=== PATIENT | female | born 1990 | race Caucasian/White ===

== ENCOUNTER 2019-02-23 04:31 | Inpatient (IN) | payer OTHER ==
[~2019-02-23 04:31] MED LIST: BUTORPHANOL 1 MG/ML INJ IV PRN; METHYLERGONOVINE 0.2MG/ML AMP IM PRN; PROMETHAZINE 25 MG/ML VIAL IM PRN; Ringers Lactate 1,000 ML IV PRN
--- OUTSIDE RECORDS SUMMARY | 2019-02-23 04:34 | XMS REPORT ---
:1990 [facility] Address [address] [place] [address] Care Team Providers Name Role Phone Unavailable Unavailable Unavailable Payers Payer Name Policy Type Policy Number Effective Date Expiration Date Problems This patient has no known problems. Allergies, Adverse Reactions, Alerts Allergy Allergy Status Severity Reaction(s) Onset Inactive Treating Comments Name Type Date Date Clinician Coconut DA Active U 2018-06 00:00:0 0 pineapple DA Active U 2018-06 00:00:0 0 latex DA Active AK 2018-06 00:00:0 0 Coconut DA Active U 2013-04 00:00:0 0 pineapple DA Active U 2013-04 00:00:0 0 latex DA Active AK 2013-04 00:00:0 0 Medications This patient has no known medications. Results Test Description Test Time Test Comments Text Results Atomic Results Result Comments BASIC METABOLIC PANEL 2018-07-06 16:32:00 Test Item Value Reference Range Comments SODIUM (test code=NA) 139 mEq/L 134-147 POTASSIUM (test code=K) 3.9 mEq/L 3.4-5.0 CHLORIDE (test code=CL) 107 mEq/L 100-108 CARBON DIOXIDE (test code=CO2) 27 mEq/L 21-33 ANION GAP (test code=GAP) 9 0-20 GLUCOSE (test code=GLU) 100 mg/dL 70-110 BLOOD UREA NITROGEN (test code=BUN) 8 mg/dL 7-18 GLOMERULAR FILTRATION RATE (test 118.2 110-120 Units of measure=ml/min/1.73 code=GFR) m2 CREATININE (test code=CREAT) 0.6 mg/dL 0.6-1.3 CALCIUM (test code=CA) 9.0 mg/dL 8.0-10.5 Is patient ? YHOW MANY WEEKS? 8 WEEKSHCG [id number] 16:32:00 Test Item Value Reference Range Comments HCG SERUM (test code=HCG) 1678 0 - 6 NOT > 6 SUGGESTIVE OF EARLY RISES TWO FOLD EVERY 2 DAYS; SUGGEST RECONFIRMING AFTER 2 DAYS. 150,000-200,[address] TRIMESTER 10,000 - 50,000 2ND & 3RD TRIMESTERResults in senthil-International Units/mL Is patient ? YHOW MANY WEEKS? 8 WEEKSBASIC METABOLIC [id number] 16: 14:00 Test Item Value Reference Range Comments SODIUM (test code=NA) 139 mEq/L 134-147 POTASSIUM (test code=K) 3.9 mEq/L 3.4-5.0 CHLORIDE (test code=CL) 107 mEq/L 100-108 CARBON DIOXIDE (test code=CO2) 27 mEq/L 21-33 ANION GAP (test code=GAP) 9 0-20 GLUCOSE (test code=GLU) 100 mg/dL 70-110 BLOOD UREA NITROGEN (test 8 mg/dL 7-18 code=BUN) GLOMERULAR FILTRATION RATE 118.2 110-120 Units of measure=ml/min/1.73 (test code=GFR) m2 CREATININE (test code=CREAT) 0.6 mg/dL 0.6-1.3 CALCIUM (test code=CA) 9.0 mg/dL 8.0-10.5 Is patient ? YHOW MANY WEEKS? 8 WEEKSHCG [id number] 16:14:00 Test Item Value Reference Range Comments HCG SERUM (test code=HCG) Is patient ? YHOW MANY WEEKS? 8 WEEKSCBC W/AUTO [id number] 15:50:00 Test Item Value Reference Range Comments WHITE BLOOD CELL (test code=WBC) 6.90 x10 3/uL 4.5-11.0 RED BLOOD CELL (test code=RBC) 4.48 x10 6/uL 3.54-5.02 HEMOGLOBIN (test code=HGB) 13.4 g/dL 11.0-15.0 HEMATOCRIT (test code=HCT) 41.1 % 33.0-45.0 MEAN CELL VOLUME (test code=MCV) 91.7 fL 81.0-99.0 MEAN CELL HGB (test code=MCH) 29.9 pg 27.0-33.0 MEAN CELL HGB CONCETRATION (test code=MCHC) 32.6 g/dL 33.0-37.0 RED CELL DISTRIBUTION WIDTH CV (test code=RDW) 12.2 % 11.5-14.5 RED CELL DISTRIBUTION WIDTH SD (test 41.2 fL 37.0-54.0 code=RDW-SD) PLATELET COUNT (test code=PLT) 248 x10 3/uL 150-400 MEAN PLATELET VOLUME (test code=MPV) 10.4 fL 7.0-9.0 NEUTROPHIL % (test code=NT%) 46.3 % 56.0-77.0 IMMATURE GRANULOCYTE % (test code=IG%) 0.1 % 0.0-2.0 LYMPHOCYTE % (test code=LY%) 41.6 % 14.0-32.0 MONOCYTE % (test code=MO%) 7.0 % 4.8-9.0 EOSINOPHIL % (test code=EO%) 4.1 % 0.3-3.7 BASOPHIL % (test code=BA%) 0.9 % 0.0-2.0 NUCLEATED RBC % (test code=NRBC%) 0.0 % 0-0 NEUTROPHIL # (test code=NT#) 3.20 x10 3/uL 2.0-7.6 IMMATURE GRANULOCYTE # (test code=IG#) 0.01 x10 3/uL 0.00-0.03 LYMPHOCYTE # (test code=LY#) 2.87 x10 3/uL 1.0-3.8 MONOCYTE # (test code=MO#) 0.48 x10 3/uL 0.1-0.8 EOSINOPHIL # (test code=EO#) 0.28 x10 3/uL 0.0-0.2 BASOPHIL # (test code=BA#) 0.06 x10 3/uL 0.0-0.2 NUCLEATED RBC # (test code=NRBC#) 0.00 x10 3/uL 0.0-0.1 MANUAL DIFF REQUIRED (test code=MDIFF) NO URINALYSIS [id number] 14:56:00 Test Item Value Reference Range Comments UA COLOR (test code=COLU) YELLOW YEL/STRAW UA APPEARANCE (test code=APPU) CLEAR CLEAR UA GLUCOSE DIPSTICK (test code=DGLUU) NEGATIVE NEGATIVE UA BILIRUBIN DIPSTICK (test code=BILU) NEGATIVE NEGATIVE UA KETONE DIPSTICK (test code=KETU) NEGATIVE NEGATIVE UA SPECIFIC GRAVITY (test code=SGU) 1.015 1.005-1.030 UA BLOOD DIPSTICK (test code=RYLEY) 2+ NEGATIVE UA PH DIPSTICK (test code=KVNG) 6.0 5.0-7.0 UA PROTEIN DIPSTICK (test code=PROU) NEGATIVE NEGATIVE UA UROBILINIOGEN DIPSTICK (test code=URO) 0.2 mg/dL 0.2-1.0 UA NITRITE DIPSTICK (test code=HARRIS) NEGATIVE NEGATIVE UA LEUKOCYTE ESTERASE DIPSTICK (test NEGATIVE NEGATIVE code=LEUU) UA WBC (test code=WBCU) NONE SEEN WBC/HPF 0-3 UA RBC (test code=RBCU) 0-3 RBC/HPF 0-3 UA BACTERIA (test code=BACU) TRACE /HPF NONE SEEN UA SQUAMOUS CELLS (test code=SQU) 0-5 /HPF NONE SEEN UA MUCUS (test code=MUCU) TRACE /LPF NONE SEEN COMMENTS: Clean CatchURINALYSIS [id number] 14:53:00 Test Item Value Reference Range Comments UA COLOR (test code=COLU) YELLOW YEL/STRAW UA APPEARANCE (test code=APPU) CLEAR CLEAR UA GLUCOSE DIPSTICK (test code=DGLUU) NEGATIVE NEGATIVE UA BILIRUBIN DIPSTICK (test code=BILU) NEGATIVE NEGATIVE UA KETONE DIPSTICK (test code=KETU) NEGATIVE NEGATIVE UA SPECIFIC GRAVITY (test code=SGU) 1.015 1.005-1.030 UA BLOOD DIPSTICK (test code=RYLEY) 2+ NEGATIVE UA PH DIPSTICK (test code=KVNG) 6.0 5.0-7.0 UA PROTEIN DIPSTICK (test code=PROU) NEGATIVE NEGATIVE UA UROBILINIOGEN DIPSTICK (test code=URO) 0.2 mg/dL 0.2-1.0 UA NITRITE DIPSTICK (test code=HARRIS) NEGATIVE NEGATIVE UA LEUKOCYTE ESTERASE DIPSTICK (test code=LEUU) NEGATIVE NEGATIVE UA WBC (test code=WBCU) WBC/HPF 0-3 UA RBC (test code=RBCU) RBC/HPF 0-3 COMMENTS: Clean Catch- US PREG UT [id number] 14:19:00 Name: JAZMÍN NESS [facility] : 1990 Age/S: 27 / F [address] [place] [address] Blvd Unit #: [id number] Loc: Rosalio [id number] Phys: EDDOC GENERIC FOR EDM Acct: [id number] Dis Date: Status: REG ER PHONE #: [phone] Exam Date: 07/06/2018 1401 FAX #: [phone] Reason: VAG BLEED EXAMS: CPTCODE: [id number] US PREG [place] TRANSVAGINAL 66210 PELVIC ULTRASOUND HISTORY: Vaginal bleeding. Comparison made to pelvic ultrasound dated 02/13/09. TECHNIQUE: Grayscale, color, and Doppler transabdominal and transvaginal imaging of the pelvis was performed with standard technique. Transvaginal ultrasound wasobtained for further evaluation of the endometrium and adnexal regions. FINDINGS: Transabdominal images show uterine length of 13.5 cm. The endometrium is approximately 2 mm in thickness. Transvaginal images show an anteverted uterus. There is a small gestational sac identified with decidual reaction. Approximate gestational age based on 0.36 cm sac diameter is 5 weeks 0 days. No yolk sac or pole currently demonstrated. There is trace free pelvic fluid. The left ovary measures 5.0 x 3.1 x 1.4 cm, with a 2.6 cm hemorrhagic corpus luteum cyst. The right ovary measures 2.8 x 1.6 x 2.8 cm and has a normal sonographic appearance. There is documented arterial flow to the right and left ovary byDoppler. IMPRESSION: 1. Small intrauterine gestational sac with decidual reaction demonstrated. Approximate gestational age by sac diameter is 5 weeks 0 days, now pole or yolk sac currently demonstrated. 2. 2.6 cm hemorrhagicleft corpus luteum cyst, trace free pelvic fluid. SL:01 at 1419 Reported and signed by: Victoriano Vidal M.D. PAGE 1 Signed Report (CONTINUED) Name: JAZMÍN NESS [facility] : 1990 Age/S: 27 / F [address] [place] [address] Unit #: [id number] Loc: ROXANNA Santamaria [address] Phys: BRUNILDACSRIRAMRIC FOR EDM Acct: [id number] Dis Date: Status: REG ER PHONE #: [phone] Exam Date: 07/06/20181401 FAX # : [phone] Reason: VAG BLEED EXAMS: CPT CODE: [id number] US PREG UT TRANSVAGINAL 11350 <Continued> CC: Technologist: Nerissa Gaona RDMS(OB)(AB) Trnscb Date/Time: 07/06/2018 (1419) [email or web address] Orig Print D/T: S : 07/06/2018 (1423) Probe: [id number] PAGE 2 Signed Report- US PREG 1ST [id number] 14:19:00 Name: JAZMÍN NESS [facility] : 1990 Age/S: 27 / F [address] [place] [address] Unit #: [id number] Loc: ROXANNA Santamaria77598 Phys: Jodee Cowan NP Acct: [id number] Dis Date: Status: REG ER PHONE #: [phone] Exam Date: 07/06/2018 1401 FAX #: [phone] Reason : Pelvic Pain EXAMS: CPTCODE: [id number] US PREG 1ST TRIMTR 04952 PELVIC ULTRASOUND HISTORY : Vaginal bleeding. Comparison made to pelvic ultrasound dated 16/03. TECHNIQUE: Grayscale, color, and Doppler transabdominal and transvaginal imaging of the pelvis was performed with standard technique. Transvaginal ultrasound wasobtained for further evaluation of the endometrium and adnexal regions. FINDINGS: Transabdominal images show uterine length of 13.5 cm. The endometrium is approximately 2 mm in thickness. Transvaginal images show an anteverted uterus. There is a small gestational sac identified with decidual reaction. Approximate gestational age based on 0.36 cm sac diameter is 5 weeks 0 days. No yolk sac or pole currently demonstrated. There is trace free pelvic fluid. The left ovary measures 5.0 x 3.1 x 1.4 cm, with a 2.6 cm hemorrhagic corpus luteum cyst. The right ovary measures 2.8 x 1.6 x 2.8 cm and has a normal sonographic appearance. There is documented arterial flow to the right and left ovary byDoppler. IMPRESSION: 1. Small intrauterine gestational sac with decidual reaction demonstrated. Approximate gestational age by sac diameter is 5 weeks 0 days, now pole or yolk sac currently demonstrated. 2. 2.6 cm hemorrhagicleft corpus luteum cyst, trace free pelvic fluid. SL:01 at 1419 Reported and signed by: Victoriano Vidal M.D. PAGE 1 Signed Report (CONTINUED) Name: JAZMÍN NESS [facility] : 1990 Age/S: 27 / F [address] [place] [address] Bl Unit #: [id number] Loc: [place] [address] Phys: Jodee Cowan NP Acct: [id number] Dis Date: Status: REG ER PHONE #: [phone] Exam Date: FAX #: [phone] Reason: Pelvic Pain EXAMS: CPT CODE: [id number] PREG 1ST TRIMTR 98342 < Continued> CC: Jodee Cowan NP Technologist: Nerissa Gaona RDMS(OB)(AB) Trnscb Date/Time: (141) Marie Orig Print D/T: S: 07/06/2018 ( 2486) Probe: PAGE 2 Signed Report
[2019-02-23] MEDS ORDERED: Ringers Lactate 1,000 ML IV SCH (05:00)
[2019-02-23] MEDS ORDERED: OXYTOCIN/LR 20 UNIT/1,000 ML BAG IV SCH ×2 (05:00→17:00)
[2019-02-23 06:26] VITALS: BMI 37.6
[2019-02-23 06:36] LABS: Absolute Lymphocytes (CBC) 2.6 K/uL (0.7-4.9); Basophils % 0.4 % (0-1.3); Hematocrit 29.9 % (36.0-45.0); Lymphocytes % 37.2 % (15.3-44.8); MPV 10.4 fL (7.6-11.3); RBC Red Blood Cell Count 3.88 M/uL (3.86-4.86)
[2019-02-23 07:38] LABS: Urine Appearance CLEAR; Urine Bilirubin NEGATIVE (NEG); Urine Blood NEGATIVE (NEG); Urine Color YELLOW; Urine Glucose NEGATIVE (NEG); Urine Protein NEGATIVE (NEG); Urine Specific Gravity 1.015 (1.005-1.030); Urine Urobilinogen 0.2 mg/dL (0.2-1.0); Urine pH 6.5 (5.0-7.0)
[2019-02-23 07:49] LABS: Urine Microscopic Reflex ORDER UMIC
[2019-02-23 07:55] LABS: Urine Bacteria <20 /HPF (<20); Urine Culture Reflex Order NOT NEEDED; Urine RBC NONE SEEN /HPF (NONE SEEN)
--- NOTE | 2019-02-23 12:15 | PREOPHP ---
Date of Admission: 02/23/2019 A 28-year-old 4, para 3, gestational diabetes, seen in conjunction with high-risk by Dr. Benton mayers, who advised delivery between 38 and 39 weeks. Patient is now 38 weeks 5 days by last menstrua l period, 3 to 3.5 cm, vertex still -1, almost -2 station. Better applied than what it has been, but still not low enough to rupture membranes. Patient knows if membranes rupture spontaneously, she is to tell the nurse, so we can check quickly. Rh positive. Immune to Rubella. Negative beta strep s creen. Admission talk given. Anticipate relatively fast labor and delivery once the membranes have been ruptured. Patient probably will request epidural; although, right now, she of course not even f eeling her contractions very much. Rates her pain level at 2/10. I will check her again in an hour and see if baby is descended low enough to rupture membranes at that point. DORIAN/MARTÍN Voice ID: [id number]
--- NOTE | 2019-02-23 12:51 | PN ---
History Of Present Illness: Destiny Wilson is faheem every 2 minutes. She is still 3.5 cm, ve rtex, is still -1 station, but with any type of pressure, still moves away, so we will wait for membr ane rupture to either occur spontaneously or wait for the baby to descend to the point where we can s afely rupture membranes. Discussion with patient and family that we try to rupture her membranes too early, we could possibly experience cord prolapse. Full discussion. DORIAN/MARTÍN Voice ID: [id number] Report ID: [id number]
[2019-02-23] MEDS ORDERED: ROPIVACAINE HCL 100 ML IV PRN (14:07)
[2019-02-23] MEDS ORDERED: FENTANYL CITR 100 MCG/2 ML IV ONE (14:07)
[2019-02-23] MEDS ORDERED: ROPIVACAINE HCL 0.2% 20ML AMP IV ONE (14:09)
[2019-02-23] MEDS ORDERED: CARBOPROST TROME 250 MCG/ML IM ONE (14:26)
[2019-02-23] MEDS ORDERED: IBUPROFEN 200 MG TAB PO PRN (16:43)
[2019-02-23] MEDS ORDERED: Oxycodone HCl/Acetaminophen 1 TAB TAB PO PRN ×2 (16:43)
[2019-02-23] MEDS ORDERED: BISACODYL 10 MG RECTAL SUPP RECT PRN (16:43)
[2019-02-23] MEDS ORDERED: DIPHENHYDRAMINE 25 MG TAB/CAP PO PRN (16:43)
[2019-02-23] MEDS ORDERED: DOCUSATE NA/SENNA CONC 1 TAB PO PRN (16:43)
[2019-02-23] MEDS ORDERED: ACETAMINOPHEN 500 MG TAB PO PRN (16:43)
--- NOTE | 2019-02-23 17:21 | PN ---
Destiny Wilson is still 3.5 cm maybe 60% effaced, with pressure and suprapubic area and fundal area. Baby stayed against the cervix quite well, rupture membranes, clear fluid. Baby now lying down int o a good position. Anticipate more rapid progress from this point forward. DORIAN/MARTÍN Voice ID: [id number] Report ID: [id number]
[2019-02-23] MEDS ORDERED: Ringers Lactate 1,000 ML IV ONE (17:51)
[2019-02-24 00:25] LABS: RPR (Rapid Plasma Reagin) NON-REACT (NON-REACT)
--- NOTE | 2019-02-24 02:43 | OP ---
Surgeon: Faustino Thompson MD This is a 28-year-old 4, para 3, followed antepartum. Rh positive, immune to Rubella. Negat robby beta strep screen. She was seen in conjunction with Dr. Alcaraz, high-hedis specialist for her diabetes. It was advised delivery of patient between 38 and 39 weeks. Patient is 35 weeks and 5 day s according to last menstrual period on admission. Approximately 3 cm on admission. Rupture of memb ranes at 3.5 cm, clear fluid. Patient went to an active labor pattern. Requested and received epidu ral anesthesia. Second stage of 10 minutes or less. Spontaneous vaginal delivery of an 8 pounds 11 ounces male infant, Apgars 9 and 9. No episiotomy. No laceration. Schultze delivery of the placent a, which inspected and noted to be intact and normal. Less than 300 cc blood loss. Patient tolerate d all procedures well. Final Diagnoses: Intrauterine gestation, 38 weeks 5 days, gestational diabetes, vaginal delivery, ep idural anesthesia. DORIAN/MARTÍN Voice ID: [id number] Report ID: [id number]
[2019-02-24 18:00] VITALS: BP 117/75; TEMP 97.8
--- NOTE | 2019-02-25 08:44 | DS ---
Date of Discharge: 02/24/2019 This is a 28-year-old 4, para 3, 38 weeks 5 days, seen in consultation with Dr. Alcaraz, nd gh-at risk paraprofessional for gestational diabetes. Dr. Alcaraz recommended delivery between 38 and 39 we eks. Patient is 38 weeks 5 days, with a favorable cervix. Rupture of membranes, clear fluid. Patie nt went to an active labor pattern. Received epidural anesthesia. Second stage very short of 10-15 minutes or less. Spontaneous vaginal delivery of an 8 pound, 11 ounce male infant, Apgars 9 and 9. No episiotomy. No lacerations worthy of suturing. Schultze delivery of the placenta. Estimated blo od loss 300 mL or less. Rh positive, immune to Rubella. Negative beta strep screen. ; af ebrile, ambulating and voiding. Lochia is normal. No post epidural problems. Will be dismissed lat er this afternoon to report back to my office in 6 weeks for followup, to report any temperature elev ation of 100 degrees or greater, severe pain, heavy bleeding, or any other type of abnormalities. Di smissed with tramadol for analgesia, although she may elect to take Motrin instead. Final Diagnoses: Term intrauterine at 38 weeks 5 days, gestational diabetes. Seen consult ation with Dr. Alcaraz, high-at risk paraprofessional, epidural anesthesia. DORIAN/MARTÍN Voice ID: [id number] Report ID: [id number]
[2019-02-26 02:52] LABS: HBsAG Nonreactive (Nonreactive)
== END 2019-02-24 19:30 | disposition home or self-care (01) | DRG 807 ==
LOC: 2ND-WC 04:31
PROVIDERS: ADMIT Specialist; ATTEND Specialist
PROC: 10907ZC Drainage of Amniotic Fluid, Therapeutic from Products of Conception, Via Natural or Artificial Opening (ICD-10-PCS; principal; 2019-02-23)
PROC: 10E0XZZ Delivery of Products of Conception, External Approach (ICD-10-PCS; 2019-02-23)
DX: O24.429 Gestational diabetes mellitus in childbirth, unspecified control (principal); Z37.0 Single live birth; Z3A.38 38 weeks gestation of pregnancy; Z88.0 Allergy status to penicillin; Z91.040 Latex allergy status
CPT/HCPCS: 36415; 81003; 81015; 85025; 86592; 86850; 86900; 86901; 87340; 99218; J2210; J2590; J2795; J3010